=== PATIENT | male | born 1945 | race Caucasian/White ===

== ENCOUNTER 2018-05-31 14:19 | Emergency (ER) | payer OTHER, MEDICARE ==
[2018-05-31 14:25] VITALS: BP 145/62
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
--- NOTE | 2018-05-31 16:21 | RADIOLOGY REPORT (SQ) ---
EXAM DESCRIPTION: TIBIA FIBULA RIGHT COMPLETED DATE/TIME: 05/31/2018 4:09 pm REASON FOR STUDY: pain s/p injury COMPARISON: None. NUMBER OF VIEWS: Two views. TECHNIQUE: Two radiographic images acquired of the right tibia and fibula to include the knee and an kle in at least one projection. LIMITATIONS: None. FINDINGS: MINERALIZATION: Normal. BONES: No acute fracture or dislocation. No worrisome bone lesions. SOFT TISSUES: No obvious swelling or foreign body. OTHER: No other significant finding. IMPRESSION: NEGATIVE STUDY OF THE RIGHT TIBIA AND FIBULA. NO RADIOGRAPHIC EVIDENCE OF ACUTE INJURY. TECHNICAL DOCUMENTATION: JOB ID: [id number] [employer]- All Rights Reserved Reading location - IP/workstation name: [email or web address]
--- NOTE | 2018-05-31 17:27 | RADIOLOGY REPORT (SQ) ---
EXAM DESCRIPTION: VENOUS UNILATERAL LOWER COMPLETED DATE/TIME: 05/31/2018 5:02 pm REASON FOR STUDY: Rt LE edema and injury COMPARISON: None. TECHNIQUE: Dynamic and static rivera scale and color images acquired of the right leg venous system. S elected spectral images acquired with additional compression and augmentation maneuvers. The contrala teral common femoral vein and saphenofemoral junction were also imaged. Images stored on PACS. LIMITATIONS: None. FINDINGS: COMMON FEMORAL: Normal phasicity, compression and augmentation. No visualized echogenic ma terial on rivera scale. No defects on color images. FEMORAL: Normal compression and augmentation. No visualized echogenic material on rivera scale. No defe cts on color images. POPLITEAL: Normal compression, augmentation. No visualized echogenic material on rivera scale. No defec ts on color images. CALF VESSELS: Normal compression, augmentation. No visualized echogenic material on rivera scale. No de fects on color images. GSV and SSV: Normal compression, augmentation. No visualized echogenic material on rivera scale. No def ects on color images. ANY DEEP VENOUS INSUFFICIENCY: No. ANY EVIDENCE OF POPLITEAL CYST: No. OTHER: No other significant finding. CONTRALATERAL COMMON FEMORAL VEIN AND SAPHENOFEMORAL JUNCTION: Normal phasicity, compression and augmentation. No visualized echogenic material on rivera scale. No de fects on color images. IMPRESSION: NO EVIDENCE DVT OR SVT IN THE RIGHT LEG. TECHNICAL DOCUMENTATION: JOB ID: [id number] [employer]- All Rights Reserved Reading location - IP/workstation name: [email or web address]
== END 2018-05-31 17:06 | disposition home or self-care (01) ==
LOC: ER 14:19
DX: M79.661 Pain in right lower leg (principal); M79.89 Other specified soft tissue disorders; W22.8XXA Striking against or struck by other objects, initial encounter; M25.571 Pain in right ankle and joints of right foot
CPT/HCPCS: 93971; 99284